=== PATIENT | male | born 1975 | race African-American/Black ===

== ENCOUNTER 2020-07-10 06:44 | Emergency (ER) | payer MEDICAID ==
[~2020-07-10] VITALS: Ht 180.3 cm; Wt 86.0 kg
[2020-07-10 06:55] VITALS: BP 148/81
== END 2020-07-10 07:36 | disposition left against medical advice (07) ==
LOC: ER 07:35
DX: Z53.21 Procedure and treatment not carried out due to patient leaving prior to being seen by health care provider (principal)